=== PATIENT | male | born 1975 | race Caucasian/White ===

== ENCOUNTER 2017-08-04 00:19 | Emergency (ER) | payer SELFPAY ==
[2017-08-04 00:24] VITALS: BP 126/90; PULSE 99; RESP 16; TEMP 36.8; O2SAT 99; BMI 24.4
--- NOTE | 2017-08-04 00:34 | [facility].EDWNDL ---
ED Disposition Clinical Impression: Cellulitis Qualifiers: Site of cellulitis: extremity Site of cellulitis of extremity: upper extremity Laterality: left Qualified Code(s): L03.114 - Cellulitis of left upper limb Disposition: Home, Self-Care Condition on Discharge: Serious Instructions: DI for Skin Abscess Additional Instructions: pt does not wish to be transfered tonight and understood risk - Critical Care Critical Care Time: No Attestation: On 08/04/17, the high probability of a clinically significant, sudden or life threatening deterioration of the following system(s) required my full and direct attention, intervention and personal management. The time I documented below is in addition to time spent performing reported procedures but includes the following listed in this critical care notation. Medical Decision Making - Medical Records Medical records reviewed: Yes: I reviewed the patient's medical records. Vital Signs: 08/04/17 00:24 Temperature 98.2 F Temperature Source Oral Pulse Rate [Right Brachial] 99 H Respiratory Rate 16 Blood Pressure [Right Arm] 126/90 Blood Pressure Mean [Right Arm] 102 Blood Pressure Source [Right Arm] Automatic Cuff Blood Pressure Position [Right Arm] Sitting 02 Sat by Pulse Oximetry 99 Oxygen Delivery Method Room Air - Lab Data Lab results reviewed: Yes: I reviewed the patient's lab results. Lab Results 08/04/17 00:40: WBC 17.6 H, RBC 4.61, Hgb 13.9 L, Hct 42.3, MCV 91.7, MCH 30.2, MCHC 33.0, RDW 14.3, Plt Count 255, MPV 7.4, Neut % (Auto) 86.6 H, Lymph % (Auto) 9.4 L, [place] % (Auto) 3.6, Eos % (Auto) 0.3, Baso % (Auto) 0.2, Neut # (Auto) 15.3 H, Lymph # (Auto) 1.6, [place] # (Auto) 0.6, Eos # (Auto) 0.1, Baso # (Auto) 0.0, Total Counted 100, Neutrophils % (Manual) 86 H, Lymphocytes % (Manual) 13, Monocytes % (Manual) 1 L, Platelet Estimate Normal, RBC Morphology Not Reportable, Anisocytosis 1+, ESR 49 H 08/04/17 00:40: Sodium 136, Potassium 4.7, Chloride 101, Carbon Dioxide 30, Anion Gap 9.7, BUN 22 H, Creatinine 1.24, Estimated Creat Clear 87, Estimated GFR 64, Est GFR ( Amer) 77, Glucose 122 H, Calcium 9.1, Total Bilirubin 0.5, AST 70 H, ALT 181 H, Alkaline Phosphatase 113, C-Reactive Protein 5.5 H, Total Protein 8.5 H, Albumin 3.7, Globulin 4.8 H, Albumin/Globulin Ratio 0.8 L 08/04/17 00:40: Lactic Acid 1.4 Result diagrams: 08/04/17 00:40 08/04/17 00:40 Orders (Tests/Meds): ED MEDICATIONS Discontinued Medications Generic Name Dose Route Start Last Admin Trade Name Freq PRN Reason Stop Dose Admin Vancomycin HCl 1,500 mg/ 250 mls @ 125 mls/hr 08/04/17 01:50 08/04/17 01:52 Sodium Chloride IV 08/04/17 01:51 125 mls/hr ONCE ONE Administration Protocol ORDERS Category Date Time Status XR hand LT min 3V Stat Exams 08/04/17 00:41 Taken Blood Culture Stat Micro 08/04/17 00:40 Received Wound Culture and Gram Stain Stat Micro 08/04/17 00:40 Received - Radiology Data #1 Image(s): Hand Image Reviewed: Yes I reviewed the patient's radiology image Preliminary Findings: Abnormal (old fx and sts ) - Darron Inquiry Pt receiving controlled substance: No Wound/Laceration HPI - General Chief Complaint: Skin/Abscess/Foreign Body Stated Complaint: ? spider bite ring finger left hand 4 days ago Time Seen by Provider: 08/04/17 00:34 Mode of Arrival: Ambulatory Source of Information: Patient, Medical Record Limitations: No Limitations Description of Symptoms (Recalled from ER Triage Doc. by RN): REDNESS, SWELLING, WITH WOUND TO LEFT HAND AND ARM - History of Present Illness HPI narrative: progressive reddness and swelling to lt hand over the last 5 days - pt with no def trauma and denied iv drug use at that site - Onset (ago): day(s) Extremity Location: Left: hand Context: other Associated symptoms: pain - Related Data Allergies Allergy/AdvReac Type Severity Reaction Status Date / Time sulfamethoxazole Allergy
--- NOTE | 2017-08-04 00:37 | ED_ITS ---
ED Disposition Clinical Impression: Cellulitis Qualifiers: Site of cellulitis: extremity Site of cellulitis of extremity: upper extremity Laterality: left Qualified Code(s): L03.114 - Cellulitis of left upper limb Disposition: Home, Self-Care Condition on Discharge: Serious Instructions: DI for Skin Abscess Additional Instructions: pt does not wish to be transfered tonight and understood risk - Critical Care Critical Care Time: No Attestation: On 08/04/17, the high probability of a clinically significant, sudden or life threatening deterioration of the following system(s) required my full and direct attention, intervention and personal management. The time I documented below is in addition to time spent performing reported procedures but includes the following listed in this critical care notation. Medical Decision Making - Medical Records Medical records reviewed: Yes: I reviewed the patient's medical records. Vital Signs: 08/04/17 00:24 Temperature 98.2 F Temperature Source Oral Pulse Rate [Right Brachial] 99 H Respiratory Rate 16 Blood Pressure [Right Arm] 126/90 Blood Pressure Mean [Right Arm] 102 Blood Pressure Source [Right Arm] Automatic Cuff Blood Pressure Position [Right Arm] Sitting 02 Sat by Pulse Oximetry 99 Oxygen Delivery Method Room Air - Lab Data Lab results reviewed: Yes: I reviewed the patient's lab results. Lab Results 08/04/17 00:40: WBC 17.6 H, RBC 4.61, Hgb 13.9 L, Hct 42.3, MCV 91.7, MCH 30.2, MCHC 33.0, RDW 14.3, Plt Count 255, MPV 7.4, Neut % (Auto) 86.6 H, Lymph % (Auto ) 9.4 L, [place] % (Auto) 3.6, Eos % (Auto) 0.3, Baso % (Auto) 0.2, Neut # (Auto) 15.3 H, Lymph # (Auto) 1.6, [place] # (Auto) 0.6, Eos # (Auto) 0.1, Baso # (Auto) 0.0, Total Counted 100, Neutrophils % (Manual) 86 H, Lymphocytes % (Manual) 13, Monocytes % (Manual) 1 L, Platelet Estimate Normal, RBC Morphology Not Reportable, Anisocytosis 1+, ESR 49 H 08/04/17 00:40: Sodium 136, Potassium 4.7, Chloride 101, Carbon Dioxide 30, Anion Gap 9.7, BUN 22 H, Creatinine 1.24, Estimated Creat Clear 87, Estimated GFR 64, Est GFR ( Amer) 77, Glucose 122 H, Calcium 9.1, Total Bilirubin 0.5, AST 70 H, ALT 181 H, Alkaline Phosphatase 113, C-Reactive Protein 5.5 H, Total Protein 8.5 H, Albumin 3.7, Globulin 4.8 H, Albumin/Globulin Ratio 0.8 L 08/04/17 00:40: Lactic Acid 1.4 Result diagrams: 08/04/17 00:40 08/04/17 00:40 Orders (Tests/Meds): ED MEDICATIONS Discontinued Medications Generic Name Dose Route Start Last Admin Trade Name Freq PRN Reason Stop Dose Admin Vancomycin HCl 1,500 mg/ 250 mls @ 125 mls/hr 08/04/17 01:50 08/04/17 01:52 Sodium Chloride IV 08/04/17 01:51 125 mls/hr ONCE ONE Administration Protocol ORDERS Category Date Time Status XR hand LT min 3V Stat Exams 08/04/17 00:41 Taken Blood Culture Stat Micro 08/04/17 00:40 Received Wound Culture and Gram Stain Stat Micro 08/04/17 00:40 Received - Radiology Data #1 Image(s): Hand Image Reviewed: Yes I reviewed the patient's radiology image Preliminary Findings: Abnormal (old fx and sts ) - Darron Inquiry Pt receiving controlled substance: No Wound/Laceration HPI - General Chief Complaint: Skin/Abscess/Foreign Body Stated Complaint: ? spider bite ring finger left hand 4 days ago Time Seen by Provider: 08/04/17 0
--- NOTE | 2017-08-04 00:41 | XR_ITS ---
XR hand LT min 3V HISTORY: Pain and swelling ITS.REASON: abscess ORDERING PHYSICIAN: Ruddy Jiménez MD PATIENT AGE: 41 years COMPARISON: None FINDINGS: Soft tissue swelling is present along the dorsal aspect of the hand. No obvious bony erosive process. There is a faint soft tissue opacity along the dorsal aspect of the hand at the proximal phalangeal region seen on the lateral view possibly representing a foreign body. This is questionable. CT may be of further value if clinically warranted. There is no avulsion fracture at the base and radial aspect of the proximal phalanx of the third digit and there is an old fracture of the scaphoid ununited with some mild sclerosis around the fracture site. IMPRESSION: 1. Possible foreign body along the dorsal aspect of the hand at the proximal phalangeal region seen on the lateral view. Cannot determine which finger this is at possibly the fourth. CT may be of further value if clinically warranted 2. 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
[2017-08-04 01:03] LABS: Basophils % 0.2 % (0.1-2.0); Eosinophils # 0.1 K/mm3 (0.0-0.4); Eosinophils % 0.3 % (0.1-12.0); Hematocrit 42.3 % (42.0-52.0); Hemoglobin 13.9 g/dL (14.1-18.0); Lymphocytes # 1.6 K/mm3 (0.7-4.5); Lymphocytes % 9.4 K/mm3 (10-50); Mean Corpuscular Hemoglobin 30.2 pg (27.0-31.2); Mean Corpuscular Volume 91.7 fl (80-94); Mean Platelet Volume 7.4 fl (7.4-10.4); Monocytes # 0.6 K/mm3 (0.1-1.0); Monocytes % 3.6 % (1.7-9.3); Neutrophils # 15.3 K/mm3 (1.8-7.8); Neutrophils % 86.6 % (37.0-80.0); Platelet Count 255 K/mm3 (142-424); Red Blood Count 4.61 M/mm3 (4.60-6.20); Red Cell Distribution Width 14.3 % (11.5-17.5); White Blood Count 17.6 K/mm3 (4.8-10.8)
[2017-08-04 01:09] LABS: MANUAL DIFFERENTIAL MANUAL DIFFERENTIAL (MANUAL DIFF)
[2017-08-04 01:19] LABS: Alanine Aminotransferase 181 U/L (12-78); Albumin Level 3.7 gm/dL (3.4-5.0); Albumin/Globulin Ratio 0.8 (1.1-1.8); Alkaline Phosphatase 113 U/L (46-116); Anion Gap 9.7 mEq/L (5-15); Aspartate Amino Transferase 70 U/L (15-37); Bilirubin,Total 0.5 mg/dL (0.2-1.0); Blood Urea Nitrogen 22 mg/dL (7-18); C-Reactive Protein 5.5 mg/L (0.0-0.9); Calcium 9.1 mg/dL (8.5-10.1); Carbon Dioxide 30 mmol/L (21.0-32.0); Chloride 101 mmol/L (98-107); Creatinine Clearance Estimated 87 mL/min (0-300); Creatinine,Serum 1.24 mg/dL (0.70-1.30); Estimated Glomerular Filt Rate 64 ml/min (>60); GFR (African American) 77 ML/MIN (>60); Globulin 4.8 gm/dl (1.3-3.2); Glucose 122 mg/dL (74-106); Potassium 4.7 mmoL/L (3.5-5.1); Sodium 136 mmol/L (136-145); Total Protein,Serum 8.5 gm/dL (6.4-8.2)
[2017-08-04 01:21] LABS: Lactic Acid 1.4 mmol/L (0.4-2.0)
[2017-08-04 01:59] LABS: Erythrocyte Sedimentation Rate 49 mm/hr (0-15)
[2017-08-04 02:01] LABS: Anisocytosis 1+; Lymphocytes % 13 % (10-50); Monocytes % 1 % (2-9); Neutrophils % 86 % (42-76); Platelet Estimate Normal; Total Cells Counted 100
== END 2017-08-04 03:27 | disposition home or self-care (01) ==
PROVIDERS: Emergency Provider Emergency Medicine
DX: L03.114 Cellulitis of left upper limb (principal); S60.465A Insect bite (nonvenomous) of left ring finger, initial encounter; F17.210 Nicotine dependence, cigarettes, uncomplicated
CPT/HCPCS: 73130; 80053; 83605; 85007; 85025; 85651; 86140; 87040; 87070; 87077; 87186; 87205; 96374; 96375; 99284; J3370

== ENCOUNTER 2017-10-08 23:26 | Emergency (ER) | payer MEDICAID, SELFPAY ==
[2017-10-08 23:28] VITALS: BP 137/83; PULSE 116; RESP 20; TEMP 36.9; O2SAT 100; BMI 25.1
--- NOTE | 2017-10-08 23:55 | [facility]H.EDCP ---
ED Disposition Clinical Impression: Pleurisy Disposition: Home, Self-Care Condition on Discharge: Good Instructions: DI for Pleurisy Additional Instructions: use meds and see your pcp for follow up Prescriptions: Azithromycin [Zithromax 250mg tab] 250 mg PO DIRECTED #6 tab predniSONE [Prednisone 20mg Tab] 20 mg PO DAILY #10 tab - Critical Care Critical Care Time: No Attestation: On 10/08/17, the high probability of a clinically significant, sudden or life threatening deterioration of the following system(s) required my full and direct attention, intervention and personal management. The time I documented below is in addition to time spent performing reported procedures but includes the following listed in this critical care notation. Medical Decision Making - Medical Records Medical records reviewed: Yes: I reviewed the patient's medical records. - Darron Inquiry Pt receiving controlled substance: No Vital Signs: 10/08/17 23:28 Temperature 98.4 F Temperature Source Oral Pulse Rate [Left Radial] 116 H Respiratory Rate 20 Blood Pressure [Left Arm] 137/83 Blood Pressure Mean [Left Arm] 101 Blood Pressure Source [Left Arm] Automatic Cuff Blood Pressure Position [Left Arm] Sitting 02 Sat by Pulse Oximetry 100 Oxygen Delivery Method Room Air - Lab Data Lab results reviewed: Yes: I reviewed the patient's lab results. Lab Results 10/08/17 23:55: WBC 10.3, RBC 5.47, Hgb 16.4, Hct 50.5, MCV 92.2, MCH 30.0, MCHC 32.5, RDW 13.1, Plt Count 162, MPV 7.9, Neut % (Auto) 72.3, Lymph % (Auto) 19.6, [place] % (Auto) 7.2, Eos % (Auto) 0.5, Baso % (Auto) 0.3, Neut # (Auto) 7.5, Lymph # (Auto) 2.0, [place] # (Auto) 0.7, Eos # (Auto) 0.1, Baso # (Auto) 0.0 10/09/17 00:35: Sodium 133 L, Potassium 4.1, Chloride 96 L, Carbon Dioxide 31, Anion Gap 10.1, BUN 11, Creatinine 1.01, Estimated Creat Clear 109, Estimated GFR 81, Est GFR ( Amer) 98, Glucose 122 H, Total Creatine Kinase 28 L, CK-MB (CK-2) < 0.5, CK-MB (CK-2) Rel Index 1.8, Troponin I < 0.02 Result diagrams: 10/08/17 23:55 10/09/17 00:35 Orders (Tests/Meds): ED MEDICATIONS Discontinued Medications Generic Name Dose Route Start Last Admin Trade Name Dannyq PRN Reason Stop Dose Admin Sodium Chloride 1,000 mls @ 999 mls/hr 10/09/17 00:00 10/09/17 00:08 Sod Chlor 0.9% 1000ml Bag IV 10/09/17 01:00 999 mls/hr .Q1H1M NAYE Administration ORDERS Category Date Time Status XR chest 2V Stat Exams 10/09/17 00:00 Taken XR ribs LT min 3V w CXR1V Stat Exams 10/09/17 00:00 Taken - Radiology Data #1 Image(s): Chest, Other (rib) Image Reviewed: Yes I reviewed the patient's radiology image Preliminary Findings: Normal/NAD - ECG Data Tracing #1 I reviewed this ECG and interpreted as documented below: Arrhythmias present: sinus tach Ischemic changes: non-specific ST-T wave changes Chest Pain HPI - General Chief Complaint: Chest Pain Stated Complaint: Chest Pain Time Seen by Provider: 10/08/17 23:55 Mode of Arrival: Ambulatory Source of Information: Patient, Significant Other, Medical Record Limitations: No Limitations Description of Symptoms (Recalled from ER Triage Doc. by RN): left chest pain for over 24 hours, hurts to take a deep breath - History of Present Illness HPI narrative: lt ant chest pain over the last 24 hrs described as sharp and constant - inc with insp MD complaint: chest pain Onset (ago): day(s) Duration: constant Activity at onset: during rest Pain location: left chest Severity: moderate Quality: sharp Exacerbating factors: inspiration Treatments prior to or on arrival for Cardiac Chest Pain: none - Related Data Previous Rx's Medication Instructions Recorded Azithromycin [Zithromax 250mg 250 mg PO DIRECTED #6 tab 10/09/17 tab] predniSONE [Prednisone 20mg 20 mg PO DAILY #10 tab 10/09/17 Tab] Allergies Allergy/AdvReac Type Severity Reaction Status Jerson
--- NOTE | 2017-10-08 23:59 | ED_ITS ---
ED Disposition Clinical Impression: Pleurisy Disposition: Home, Self-Care Condition on Discharge: Good Instructions: DI for Pleurisy Additional Instructions: use meds and see your pcp for follow up Prescriptions: Azithromycin [Zithromax 250mg tab] 250 mg PO DIRECTED #6 tab predniSONE [Prednisone 20mg Tab] 20 mg PO DAILY #10 tab - Critical Care Critical Care Time: No Attestation: On 10/08/17, the high probability of a clinically significant, sudden or life threatening deterioration of the following system(s) required my full and direct attention, intervention and personal management. The time I documented below is in addition to time spent performing reported procedures but includes the following listed in this critical care notation. Medical Decision Making - Medical Records Medical records reviewed: Yes: I reviewed the patient's medical records. - Darron Inquiry Pt receiving controlled substance: No Vital Signs: 10/08/17 23:28 Temperature 98.4 F Temperature Source Oral Pulse Rate [Left Radial] 116 H Respiratory Rate 20 Blood Pressure [Left Arm] 137/83 Blood Pressure Mean [Left Arm] 101 Blood Pressure Source [Left Arm] Automatic Cuff Blood Pressure Position [Left Arm] Sitting 02 Sat by Pulse Oximetry 100 Oxygen Delivery Method Room Air - Lab Data Lab results reviewed: Yes: I reviewed the patient's lab results. Lab Results 10/08/17 23:55: WBC 10.3, RBC 5.47, Hgb 16.4, Hct 50.5, MCV 92.2, MCH 30.0, MCHC 32.5, RDW 13.1, Plt Count 162, MPV 7.9, Neut % (Auto) 72.3, Lymph % (Auto) 19.6, [place] % (Auto) 7.2, Eos % (Auto) 0.5, Baso % (Auto) 0.3, Neut # (Auto) 7.5 , Lymph # (Auto) 2.0, [place] # (Auto) 0.7, Eos # (Auto) 0.1, Baso # (Auto) 0.0 10/09/17 00:35: Sodium 133 L, Potassium 4.1, Chloride 96 L, Carbon Dioxide 31, Anion Gap 10.1, BUN 11, Creatinine 1.01, Estimated Creat Clear 109, Estimated GFR 81, Est GFR ( Amer) 98, Glucose 122 H, Total Creatine Kinase 28 L, CK -MB (CK-2) < 0.5, CK-MB (CK-2) Rel Index 1.8, Troponin I < 0.02 Result diagrams: 10/08/17 23:55 10/09/17 00:35 Orders (Tests/Meds): ED MEDICATIONS Discontinued Medications Generic Name Dose Route Start Last Admin Trade Name Freq PRN Reason Stop Dose Admin Sodium Chloride 1,000 mls @ 999 mls/hr 10/09/17 00:00 10/09/17 00:08 Sod Chlor 0.9% 1000ml Bag IV 10/09/17 01:00 999 mls/hr .Q1H1M NAYE Administration ORDERS Category Date Time Status XR chest 2V Stat Exams 10/09/17 00:00 Taken XR ribs LT min 3V w CXR1V Stat Exams 10/09/17 00:00 Taken - Radiology Data #1 Image(s): Chest, Other (rib) Image Reviewed: Yes I reviewed the patient's radiology image Preliminary Findings: Normal/NAD - ECG Data Tracing #1 I reviewed this ECG and interpreted as documented below: Arrhythmias present: sinus tach Ischemic changes: non-specific ST-T wave changes Chest Pain HPI - General Chief Complaint: Chest Pain Stated Complaint: Chest Pain Time Seen by Provider: 10/08/17 23:55 Mode of Arrival: Ambulatory Source of Information: Patient, Significant Other, Medical Record Limitations: No Limitations Description of Symptoms (Recalled from ER Triage Doc. by RN): left chest pain for over 24 hours, hurts to take a deep breath - History of Present Illness HPI narrative: lt
--- NOTE | 2017-10-09 | XR_ITS ---
XR chest 2V HISTORY: Left-sided chest pain ITS.REASON: pain ORDERING PHYSICIAN: Ruddy Jiménez MD PATIENT AGE: 42 years COMPARISON: None available FINDINGS: The cardiomediastinal silhouette and pulmonary vascularity are within normal limits. The lungs are clear without infiltrates, suspicious nodules, or pleural effusions. The patient's arm is obscuring the posterior hemithorax on the lateral view. No acute bony abnormalities. IMPRESSION: No acute finding. Somewhat limited study with the patient's arms obscuring the posterior chest on the lateral view.
--- NOTE | 2017-10-09 | XR_ITS ---
XR ribs LT min 3V w CXR1V HISTORY: Left-sided chest pains, rib pain ITS.REASON: pain ORDERING PHYSICIAN: Ruddy Jiménez MD PATIENT AGE: 42 years COMPARISON: None FINDINGS: Multiple views of the Left ribs were obtained. No fracture or dislocation. No lytic or blastic change. IMPRESSION: Negative RIBS. If pain persists, consider follow-up exam in 7-[address] with 3-D reformats.
[2017-10-09 00:02] LABS: Basophils % 0.3 % (0.1-2.0); Eosinophils # 0.1 K/mm3 (0.0-0.4); Eosinophils % 0.5 % (0.1-12.0); Hematocrit 50.5 % (42.0-52.0); Hemoglobin 16.4 g/dL (14.1-18.0); Lymphocytes % 19.6 K/mm3 (10-50); Mean Corpuscular HGB Conc 32.5 g/dL (31.8-35.4); Mean Corpuscular Volume 92.2 fl (80-94); Mean Platelet Volume 7.9 fl (7.4-10.4); Monocytes # 0.7 K/mm3 (0.1-1.0); Monocytes % 7.2 % (1.7-9.3); Neutrophils # 7.5 K/mm3 (1.8-7.8); Neutrophils % 72.3 % (37.0-80.0); Platelet Count 162 K/mm3 (142-424); Red Blood Count 5.47 M/mm3 (4.60-6.20); Red Cell Distribution Width 13.1 % (11.5-17.5); White Blood Count 10.3 K/mm3 (4.8-10.8)
[2017-10-09 01:12] LABS: Anion Gap 10.1 mEq/L (5-15); Blood Urea Nitrogen 11 mg/dL (7-18); Carbon Dioxide 31 mmol/L (21.0-32.0); Chloride 96 mmol/L (98-107); Creatine Kinase 28 U/L (39-308); Creatinine Clearance Estimated 109 mL/min (0-300); Creatinine,Serum 1.01 mg/dL (0.70-1.30); Estimated Glomerular Filt Rate 81 ml/min (>60); GFR (African American) 98 ML/MIN (>60); Glucose 122 mg/dL (74-106); Potassium 4.1 mmoL/L (3.5-5.1); Sodium 133 mmol/L (136-145); Troponin I < 0.02 ng/ml (0.00-0.06)
[2017-10-09 01:15] LABS: CKMB Relative Index 1.8 U/L (0-4.0); Creatine Kinase MB < 0.5 ng/ml (0.0-3.6)
--- NOTE | 2017-10-09 01:34 | PC.NURSE ---
patient pulled out IV and left ER. Called phone number listed on chart to inform patient of RX number no longer in service.
[2017-10-09 01:37] VITALS: BP 137/83; PULSE 110; RESP 18; TEMP 36.9; O2SAT 100
== END 2017-10-09 01:44 | disposition home or self-care (01) ==
PROVIDERS: Emergency Provider Emergency Medicine
DX: R09.1 Pleurisy (principal); R07.9 Chest pain, unspecified; Z88.2 Allergy status to sulfonamides
CPT/HCPCS: 71046; 71101; 80048; 82550; 82553; 84484; 85025; 93005; 96365; 96366; 96375; 99283